=== PATIENT | female | born 1975 | race Caucasian/White ===

== ENCOUNTER → 2018-06-16 | Outpatient (CLI) | payer BC, OTHER ==
[~2018-06-16] MED LIST: FLU60VIA41 IM; HYDR2TAB4 PO; IBUP800T37 PO; LACT1CAP6 PO; OXYC-373 PO; PREN-127 PO; VITA-175 PO
--- NOTE | 2018-06-17 09:13 | RADIOLOGY IMAGING REPORT ---
FACILITY: [facility] PATIENT NAME: JI HORN : [id number] MR: [id number] V: [id number] EXAM DATE: [id number] ORDERING PHYSICIAN: SHAROAN LOAIZA TECHNOLOGIST: Janay Gerardo PROCEDURE:BILATERAL DIGITAL SCREENING MAMMOGRAM WITH CAD ASSISTED INTERPRETATION & 3D TOMOSYNTHESIS COMPARISON:None. INDICATIONS:SCREENING BASELINE FINDINGS: The breasts are heterogeneously dense which can obscure small masses. There is no demonstration of malignant appearing mass or calcification in either breast. DIAGNOSTIC CATEGORY 1--NEGATIVE. RECOMMENDATIONS: ROUTINE MAMMOGRAM AND CLINICAL EVALUATION. IMPRESSION: BIRADS 1: Negative. No significant abnormality is seen. Dictated by: Flori Thurman M.D. on 06/16/2018 at 16:20 Transcribed by: ROHITH on 06/17/2018 at 8:16 Approved by: Flori Thurman M.D. on 06/17/2018 at 9:12 [facility]
== END ==
LOC: MAMO 00:57
PROVIDERS: ATTEND Family Medicine
DX: Z12.31 Encounter for screening mammogram for malignant neoplasm of breast (principal)
CPT/HCPCS: 77063; 77067

== ENCOUNTER → 2018-07-20 | Outpatient (CLI) | payer OTHER ==
--- NOTE | 2018-07-20 10:55 | RADIOLOGY IMAGING REPORT ---
FACILITY: [facility] PATIENT NAME: Kim Joy : 1975 MR: [id number] V: [id number] EXAM DATE: ORDERING PHYSICIAN: KATERIN MYERS TECHNOLOGIST: [place] [facility] [place] : 1975 Visit/Account:[id number] Date of Sevice: 07/20/2018 Exam type: L-SPINE COMPLETE W/BENDING History: Low back pain, no known injury Comparison: None. Findings: Six views of the lumbar spine were submitted including AP, three lateral views in the neutral flexion and extension position and bilateral oblique. There are six nonrib-bearing lumbar-type vertebral bodies present. There is no evidence of acute fra ctures or subluxations. There is a small triangular shaped bony density projecting just anterior to the inferior endplate of L4 which may be related to old trauma. IMPRESSION: 1. There is six nonrib-bearing lumbar-type vertebral bodies present. Small triangle shaped bony density projects just anterior to the inferior plate of L4 which may be re lated to old trauma. If patient's symptoms persist MR may be helpful. Report Dictated By: Flori Thurman MD at 07/20/2018 10:15 AM Report E-Signed By: Flori Thurman MD at 07/20/2018 10:49 AM WSN:[id number]
== END ==
LOC: RAD 08:03
PROVIDERS: ATTEND Chiropractor
DX: M54.5 Low back pain (principal)
CPT/HCPCS: 72114